=== PATIENT | male | born 1940 | race Caucasian/White ===

== ENCOUNTER 2018-05-09 07:07 | Day surgery (SDC) | payer MEDICARE, MEDICAID ==
[2018-05-05 12:38] VITALS: BMI 30.4
[2018-05-09 07:56] VITALS: O2SAT 98
[2018-05-09] MEDS ORDERED: Triamcinolone Acetonide 40 mg/mL Inj ONE ×2 (08:07→10:31)
[2018-05-09] MEDS ORDERED: Bacitracin Ointment 30 GM TUBE ONE (08:07)
[2018-05-09] MEDS ORDERED: Iohexol 240 (50 ml) ONE (08:07)
[2018-05-09] MEDS ORDERED: Sodium Bicarbonate (8.4%) 50 Meq Syringe IVP ONE (08:07)
[2018-05-09] MEDS ORDERED: Lidocaine 1% Inj (20ml) ONE ×2 (08:07→09:00)
[2018-05-09] MEDS ORDERED: Midazolam 2 MG/2 ML VIAL ONE (08:59)
[2018-05-09] MEDS ORDERED: Propofol 10 mg/ml Inj (20 ML) ONE ×2 (08:59→10:24)
[2018-05-09] MEDS ORDERED: CeFAZolin 1 gm in NS 100ml IVPB ONE (09:10)
[2018-05-09] MEDS ORDERED: Lidocaine 1% w Epi 1:100,000 Inj ONE (09:19)
[2018-05-09] MEDS ORDERED: Sodium Chloride 0.9% 20 ML IV ONE (09:20)
[2018-05-09] MEDS ORDERED: Morphine 2 mg/ml ISec IVP PRN (10:48)
[2018-05-09] MEDS ORDERED: Lactated Ringer's 1,000 ML IV SCH (11:00)
[2018-05-09 11:44] VITALS: BP 135/82; PULSE 60; RESP 18; TEMP 97.4
--- NOTE | 2018-05-09 18:51 | RAD ---
Date of service: 05/09/2018 PROCEDURE: Fluoroscopy up to 1 hr. HISTORY: LAMINECTOMY COMPARISON: None TECHNIQUE: Standard protocol for this study/examination. FINDINGS: Total fluoroscopic time (continuous mode) utilized during the procedure 216.8 seconds. Total exam DLP: 105.79 (mGy). IMPRESSION: Less than 1 hr fluoroscopic assistance provided during performance of the procedure.
--- NOTE | 2018-05-09 22:22 | OP ---
PROCEDURE DATE: 05/09/2018 TYPE OF SURGERY: Minimally invasive lumbar decompression procedure (percutaneous image-guided lumbar decompression), CPT code 0275T. PREOPERATIVE DIAGNOSIS: Spinal stenosis, lumbar region with neurogenic claudication, L2-L3, L3-L4, ICD-10 code is M48.062. POSTOPERATIVE DIAGNOSIS: Spinal stenosis lumbar region with neurogenic claudication L2-L3, L3-L4. ICD-10 code is M48.062. PROCEDURES PERFORMED: 1. Bilateral L2-L3, L3-L4 percutaneous lumbar decompression (minimally invasive lumbar decompression procedure). 2. Fluoroscopic guidance. 3. Epidurogram at the target level is being treated and debulked. 4. Intravenous sedation. SURGEON: Flip Lopez MD ANESTHESIOLOGIST: Nikhil Chowdhury DO METHOD OF SURGERY: The patient signed an informed consent form after all risks and complications were explained and all questions were answered. An IV was started in the preop area, and an IV fluid administration continued throughout the procedure. Blood pressure, heart rate, pulse oximetry and cardiac monitoring were monitored throughout the procedure. Intravenous sedation appropriate to the procedure was administered by the anesthesiologist and was accurately reflected in the patient's chart. IV Ancef 2 g was administered preoperatively. The patient was prepped and draped in a sterile fashion in the prone position, and the spine was surveyed under fluoroscopic guidance and anatomical landmarks were identified. Percutaneous lumbar decompression (MILD procedure L3-L4). Ample amounts of local anesthesia using 1% lidocaine with epinephrine mixed with sodium bicarbonate as above were used to anesthetize the skin and the deep fascial plane after topographical landmarks were identified. Then, an epidurogram was performed under direct fluoroscopic visualization at L3 level by insertion of 20-gauge 3.5-inch Tuohy needle using loss of resistance technique. After negative aspiration for cerebrospinal fluid or blood, a minimal amount of Omnipaque contrast was injected, which showed decreased contrast flow past the L3-L4 level. An oblique contralateral view of the epidurogram was undertaken, which indicated lumbar spinal stenosis as shown by decreased contrast flow. A small incision was made with sharp scalpel blade, and a trocar with portal was inserted percutaneously under fluoroscopic guidance to contact the lamina of L4. A bone-sculpting rongeur was inserted to remove adequate amount of lamina (laminotomy) from the superior surface of L4 lamina and from the inferior aspect of the L3 lamina. The laminotomy created a passage for the tissue sculpting instruments used in debulking the ligamentum flavum. The ligamentum flavum was debulked in such way that the epidural contrast upon repeat of the epidurogram showed improved flow. Again, a similar procedure was performed on the other side bilaterally and was performed at L2-L3 level at the same fashion. There was no complication or difficulty noted during the procedure. Epidurogram was refreshed repeatedly throughout the procedure and demonstrated improvement in the original narrow canal. Upon completion of the procedure, the instruments were removed and appropriate hemostasis was achieved by direct compression and closure of the wound was performed by one suture of 2-0 nylon in each incision. The patient tolerated the procedure very well. Upon transferring the patient to the recovery room, the patient's vital signs remained stable and without any neurological deficit. A brief neurological exam was performed and showed adequate strength and no loss of sensation in lower extremities. COMPLICATIONS: None. DISPOSITION: 1. The patient was discharged to recovery room in a good condition. 2. Discharge instructions provided and explained. 3. Call for any questions or concern. 4. Apply ice to the incision site as needed. 5. The patient to return to the office in 10 to 14 days for followup and to remove the sutures. Flip Lopez MD
== END 2018-05-09 12:18 | disposition home or self-care (01) ==
LOC: SDS 07:07
PROVIDERS: ATTEND Specialist
DX: M48.062 Spinal stenosis, lumbar region with neurogenic claudication (principal)
CPT/HCPCS: 0275T; J0690; J2250; J2270; J2405; J2704; J3010; J3301; J7120 ×2; Q9966